=== PATIENT | female | born 1980 | race Native Hawaiian/Other Pacific Islander ===

== ENCOUNTER 2019-03-06 07:44 | Outpatient (CLI) | payer OTHER | END 2019-03-06 19:49 | disposition home or self-care (01) | LOC: CT 07:44 | DX: N20.2 Calculus of kidney with calculus of ureter (principal) ==

== ENCOUNTER 2019-10-28 10:35 | Outpatient (CLI) | payer OTHER | END 2019-10-28 21:59 | disposition home or self-care (01) | LOC: US 10:35 | DX: R10.2 Pelvic and perineal pain (principal) ==

== ENCOUNTER 2020-06-29 15:34 | Observation (INO) | payer OTHER ==
[~2020-06-29] VITALS: Ht 165.1 cm; Wt 73.6 kg
[2020-06-29 17:04] LABS: POTASSIUM 2.5 mmol/L (3.6-5.2); SODIUM 135 mmol/L (136-145)
[2020-06-29 18:18] VITALS: BP 90/60; TEMP 99; Ht 165.1 cm; Wt 73.6 kg
[2020-06-29 20:00] VITALS: BP 104/65; TEMP 100.9
[2020-06-30 00:26] VITALS: BP 94/58; TEMP 99.9
[2020-06-30 04:00] VITALS: BP 95/60; TEMP 98.8
[2020-06-30 08:00] VITALS: BP 90/62; TEMP 98.8
[2020-06-30 08:52] LABS: POTASSIUM 3.4 mmol/L (3.6-5.2)
[2020-06-30 10:15] LABS: PLATELET COUNT 180 K/uL (152-353)
[2020-06-30 12:00] VITALS: BP 97/66; TEMP 97.9
[2020-06-30 16:00] VITALS: BP 98/68; TEMP 98.1
[2020-06-30 20:00] VITALS: BP 103/68; TEMP 98.8
[2020-07-01] VITALS: BP 110/75; TEMP 99
[2020-07-01 04:00] VITALS: BP 114/75; TEMP 99.3
[2020-07-01 05:15] LABS: PLATELET COUNT 178 K/uL (152-353)
[2020-07-01 05:36] LABS: POTASSIUM 3.3 mmol/L (3.6-5.2)
[2020-07-01 08:00] VITALS: BP 106/73
[2020-07-01] MEDS ORDERED: LISITAB PO (10:29)
== END 2020-07-01 10:45 | disposition home or self-care (01) ==
LOC: MED/SURG 15:34
PROVIDERS: ADMIT Family Medicine
DX: N39.0 Urinary tract infection, site not specified (principal); E86.0 Dehydration; R55 Syncope and collapse; R50.9 Fever, unspecified
CPT/HCPCS: 36415; 80053; 81000; 82550; 83735; 84100; 84443; 84484; 85027; 87040; 87490; 87502; 87590; 87651; 93005; 96365; 96366; 96367; 99220; G0378; G0379; J2543

== ENCOUNTER 2021-05-18 08:58 | Outpatient (CLI) | payer OTHER ==
[~2021-05-18] VITALS: Ht 162.6 cm; Wt 70.3 kg
[~2021-05-18 08:58] MED LIST: LISITAB PO
== END 2021-05-18 20:35 | disposition home or self-care (01) ==
LOC: INF 08:58
PROVIDERS: ATTEND Family Medicine
DX: Z23 Encounter for immunization (principal); U07.1 COVID-19
CPT/HCPCS: 96365; M0244

== ENCOUNTER 2021-12-13 10:03 | Outpatient (CLI) | payer OTHER | END 2021-12-13 19:07 | disposition home or self-care (01) | LOC: MAMMO 10:03 | PROVIDERS: ATTEND Nurse Practitioner Family | DX: Z12.31 Encounter for screening mammogram for malignant neoplasm of breast (principal) ==